=== PATIENT | male | born 1960 | race Native Hawaiian/Other Pacific Islander ===

== ENCOUNTER 2018-02-20 12:32 | Outpatient (CLI) | payer OTHER ==
[~2018-02-20 12:32] MED LIST: AMBIEN5 MG PO; ASA LO-DOSE81 MG PO; GLIM4TAB PO; LISI20TA31 PO; METF500T PO; TRIGLIDE160 MG PO
[2018-02-20 13:21] LABS: PLATELET COUNT 312 K/uL (142-355)
[2018-02-20 13:40] LABS: POTASSIUM 4.4 mmol/L (3.6-5.2)
== END 2018-02-20 23:02 | disposition home or self-care (01) ==
LOC: LABW 12:32
PROVIDERS: Internal Medicine
DX: N18.3 Chronic kidney disease, stage 3 (moderate) (principal); E53.9 Vitamin B deficiency, unspecified; R82.998 Other abnormal findings in urine; Z79.899 Other long term (current) drug therapy
CPT/HCPCS: 36415; 80053; 81000; 82043; 82306; 82570; 82607; 83735; 83970; 84155; 84439; 84443; 84550; 85027; 85651; 86431; 87077; 87086; 87088; 87186

== ENCOUNTER 2018-07-04 10:32 | Outpatient (CLI) | payer OTHER ==
[2018-07-04 10:51] LABS: PLATELET COUNT 307 K/uL (142-355)
[2018-07-04 11:02] LABS: POTASSIUM 4.8 mmol/L (3.6-5.2)
== END 2018-07-04 20:04 | disposition home or self-care (01) ==
LOC: LABW 10:32
PROVIDERS: Internal Medicine
DX: E53.8 Deficiency of other specified B group vitamins (principal); N18.3 Chronic kidney disease, stage 3 (moderate)
CPT/HCPCS: 36415; 80053; 82306; 82607; 83735; 84100; 85027

== ENCOUNTER 2019-03-05 13:09 | Outpatient (CLI) | payer OTHER ==
[2019-03-05 13:45] LABS: PLATELET COUNT 298 K/uL (142-355)
[2019-03-05 13:46] LABS: POTASSIUM 4.2 mmol/L (3.6-5.2)
== END 2019-03-05 20:11 | disposition home or self-care (01) ==
LOC: LABW 13:09
PROVIDERS: Internal Medicine
DX: E53.8 Deficiency of other specified B group vitamins (principal); N18.3 Chronic kidney disease, stage 3 (moderate); R82.998 Other abnormal findings in urine
CPT/HCPCS: 36415; 80053; 81000; 82330; 82570; 82607; 82746; 83735; 84100; 84155; 85027; 87077; 87086; 87088; 87186

== ENCOUNTER 2019-07-26 10:28 | Outpatient (CLI) | payer OTHER | END 2019-07-26 18:57 | disposition home or self-care (01) | LOC: RAD 10:28 | DX: Z01.818 Encounter for other preprocedural examination (principal) ==

== ENCOUNTER 2020-02-16 15:53 | Emergency (ER) | payer OTHER ==
[~2020-02-16] VITALS: Ht 175.3 cm; Wt 104.3 kg
[2020-02-16 16:44] LABS: PLATELET COUNT 264 K/uL (142-355)
[2020-02-16 16:49] LABS: POTASSIUM 5.1 mmol/L (3.6-5.2); SODIUM 132 mmol/L (136-145)
[2020-02-16 16:55] LABS: PARTIAL THROMBOPLASTIN TIME 23.2 SECONDS (24.5-33.6)
[2020-02-16 20:00] VITALS: BP 132/87; TEMP 99.5
== END 2020-02-16 20:00 | disposition home or self-care (01) ==
LOC: ED 15:53
PROVIDERS: Hospitalist
DX: U07.1 COVID-19 (principal); J06.9 Acute upper respiratory infection, unspecified; R11.2 Nausea with vomiting, unspecified
CPT/HCPCS: 36415; 80053; 82550; 83880; 84484; 85027; 85610; 85730; 87502; 87635; 87651; 93005; 96360; 96375; 99284; J1100; J2405; U0003

== ENCOUNTER 2020-11-10 11:21 | Outpatient (CLI) | payer OTHER | END 2020-11-10 19:13 | disposition home or self-care (01) | LOC: RAD 11:21 | PROVIDERS: ATTEND Internal Medicine Cardiovascular Disease | DX: R07.9 Chest pain, unspecified (principal) ==

== ENCOUNTER 2020-12-31 08:09 | Outpatient (CLI) | payer OTHER | END 2020-12-31 19:15 | disposition home or self-care (01) | LOC: US 08:09 | PROVIDERS: ATTEND Internal Medicine | DX: R74.8 Abnormal levels of other serum enzymes (principal) ==

== ENCOUNTER 2021-01-13 09:34 | Outpatient (CLI) | payer OTHER | END 2021-01-13 20:18 | disposition home or self-care (01) | LOC: CT 09:34 | PROVIDERS: ATTEND Internal Medicine | DX: K85.80 Other acute pancreatitis without necrosis or infection (principal) ==

== ENCOUNTER 2021-03-04 11:21 | Outpatient (CLI) | payer OTHER | END 2021-03-04 19:10 | disposition home or self-care (01) | LOC: LABW 11:21 | PROVIDERS: ATTEND Internal Medicine | DX: N13.30 Unspecified hydronephrosis (principal); Z79.899 Other long term (current) drug therapy | CPT/HCPCS: 81000; 87088 ==

== ENCOUNTER 2021-03-12 08:36 | Outpatient (CLI) | payer OTHER | END 2021-03-12 23:05 | disposition home or self-care (01) | LOC: NM 08:36 | PROVIDERS: ATTEND Urology | DX: N13.5 Crossing vessel and stricture of ureter without hydronephrosis (principal); N20.2 Calculus of kidney with calculus of ureter | CPT/HCPCS: A9562 ==